=== PATIENT | male | born 1935 | race Caucasian/White ===

== ENCOUNTER 2019-04-19 13:42 | Inpatient (IN) | payer MEDICARE, OTHER ==
[2019-04-19] MEDS ORDERED: Piperacillin/Tazobactam 4.5 GM VIAL ONE (15:08)
[2019-04-19 15:10] LABS: Hemoglobin 9.7 g/dL (14.0-18.0); Mean Corpuscular HGB CONC 33.5 g/dL (32.0-36.0); Mean Corpuscular Hemoglobin 27.8 pg (27.0-31.0); Mean Platelet Volume 8.6 fL (7.4-10.4); Platelet Count 128 thou/uL (130-400); Red Blood Cell (RBC) Count 3.48 mill/uL (4.70-6.10)
[2019-04-19 15:26] LABS: Anisocytosis SLIGHT = 6-15 cells (100X) (0-5/hpf); Band 1 % (5-11); Lymphocytes 23 % (21-51); MDiff Complete? YES; Monocytes 10 % (0-10); Neutrophil 64 % (42-75); Platelet Morphology Comment Appears Decreased; Polychromasia SLIGHT = 2-3 cells (100X) (0-2/hpf); Reactive Lymphocytes 1 % (0-10)
[2019-04-19 15:31] LABS: ALT (SGPT) 13 U/L (8-55); AST (SGOT) 24 U/L (5-34); Albumin 3.4 g/dL (3.4-4.8); Alkaline Phosphatase 113 U/L (40-150); Anion Gap 14 mmol/L (10-20); BUN (Urea Nitrogen) 30 mg/dL (8.4-25.7); Bilirubin, Total 1.8 mg/dL (0.2-1.2); Calc. Creatinine Clearance 0 mL/min (70-130); Calcium 9.6 mg/dL (7.8-10.44); Carbon Dioxide 24 mmol/L (23-31); Chloride 103 mmol/L (98-107); Estimated GFR-MDRD 42; Globulin 4.9 g/dL (2.4-3.5); Glucose 150 mg/dL (83-110); Potassium 4.5 mmol/L (3.5-5.1); Protein, Total 8.3 g/dL (5.8-8.1); Sodium 136 mmol/L (136-145)
[2019-04-19] MEDS ORDERED: Clindamycin/D5W 600 mg/50 ml Premix Bag ONE (15:54)
[2019-04-19] MEDS ORDERED: Bisacodyl 10 MG SUPP PR PRN (19:07)
[2019-04-19] MEDS ORDERED: Guaifenesin DM 100-10/5 ML UDCUP PO PRN (19:07)
[2019-04-19] MEDS ORDERED: Vancomycin HCl 1 GM in Premix Bag 1 BAG IVPB SCH ×2 (19:15→21:45)
--- NOTE | 2019-04-19 20:07 | HP ---
REASON FOR ADMISSION: suspected Sepsis, bilateral leg chronic nonhealing ulcers with suspected infection, bilateral decubitus ulcers of buttocks. HISTORY OF PRESENTING ILLNESS: The patient has chronic leg ulcers from 2016. He was recently hospitalized at [facility] from 04/03/2019 for a total of 6 days. He was given antibiotics for the infected ulcers in the legs. He had [facility] with wound care arranged and was asked to follow up with his physician. From last one week, the patient's both lower extremities have become more swollen and the ulcers are weeping. It has become smelly as well per . Finally, the spoke to [facility] health nurse and drove her to the emergency room here. He in fact completed his antibiotics, which was given at [facility] yesterday. He does not recall the name of the antibiotic. He also has significant history of having had a big skin cancer removed from the scalp on the of last month. He had stitches placed for it and this was removed two weeks back. He has been wheelchair bound for last 1 year. He has decubitus ulcers over both buttocks, which have been present for a long time and have gradually become bigger and it is also draining more. PAST MEDICAL AND SURGICAL HISTORY: Chronic lower extremity ulcerations with likely stasis edema, bilateral decubitus ulcers in the buttocks due to poor functional status and the patient being wheelchair bound from last 1 year now, history of right hip replacement, small bowel obstruction with surgery done in August 2018 at [facility], cholecystectomy. No prior history of cardiac issues or heart failure to the patient or his 's knowledge. Cataract surgery. He apparently had repair of incarcerated ventral hernia on November 11, 2018. CKD stage 3, gout, hearing loss, depression. CURRENT MEDICATIONS: None. The patient was on Lasix before his recent hospitalization on the at [place], but on discharge, he was advised not to take it. He takes multivitamin occasionally. He finished his antibiotics and probiotic which was given at [facility] yesterday. ALLERGIES: ALLERGIC TO CIPROFLOXACIN, AZTREONAM, BENADRYL AND ZOSYN. PERSONAL HISTORY: Does not abuse alcohol or drugs. The patient quit smoking about 58 years ago. FAMILY HISTORY: Mother at the age of 62 years. She has had stroke. Father at the age of 74 years in a prison and he does not know the cause. Brother of colon cancer at the age of 80. Has another brother who has stage IV colon cancer and is living. CODE STATUS: DNAR. I have discussed this with the patient at bedside and his power of managing attorney and at bedside. REVIEW OF SYSTEMS: CONSTITUTIONAL: Negative for weight loss or gain, ability to conduct usual activities. SKIN: Negative for rash, itching. EYES: Negative for double vision, pain. ENT/MOUTH: Negative for nose bleeding, neck stiffness, pain, tenderness. CARDIOVASCULAR: Negative for palpitations, dyspnea on exertion, orthopnea. RESPIRATORY: Negative for shortness of breath, wheezing, cough, hemoptysis, fever or night sweats. GASTROINTESTINAL: Negative for poor appetite, abdominal pain, heartburn, nausea , vomiting, constipation, or diarrhea. GENITOURINARY: Negative for urgency, frequency, dysuria, nocturia. MUSCULOSKELETAL: Negative for pain, swelling. NEUROLOGIC/PSYCHIATRIC: Negative for anxiety, depression. ALLERGY/IMMUNOLOGIC: Negative for skin rash, bleeding tendency. PHYSICAL EXAMINATION: GENERAL: The patient is an 84-year-old male who is currently not in any acute distress. VITAL SIGNS: Blood pressure 154/58, pulse 110 per minute, respiratory rate 24 per minute, temperature 98 degrees Fahrenheit, and saturating 97% on room air. NECK: Supple. No elevated JVD. HEENT: Eyes; extraocular muscles intact. Pupils reacting to light. Oral cavity, mucous membranes are dry. No exudates or congestion. CARDIOVASCULAR: S1 and S2 heard. Regular rhythm. RESPIRATORY: Air entry 1+ bilateral. No rales or rhonchi. ABDOMEN: Soft. Bowel sounds heard. No tenderness, rigidity, or guarding. The patient still has ventral hernia which is easily reducible. EXTREMITIES: The patient has 2+ peripheral edema. Has chronic ulcerations on both leg area. Both are large size ulcers at least 6 x 10 cm on both legs. Has yellowish green material at the edges of the ulcer draining out. He has bilateral buttock ulcers on the medial side of both buttocks, even this is draining serosanguinous material. The right buttock ulcer is 5 x 6 cm and the left buttock ulcer is around 4 x 4 cm. Peripheral pulses in the lower extremities are barely palpable. No gangrene seen in the toes. Upper extremity peripheral pulses are 1+ bilateral. CENTRAL NERVOUS SYSTEM: No gross focal deficits noted. The patient moves all extremities. PSYCHIATRIC: No obvious hallucinations or delusions. LABORATORY DATA: White count of 7, H and H 10 and 29, platelet count is 128, MCV is 83 with 64% neutrophils. BUN 30, creatinine 1.58, serum bicarb 24, serum glucose 150, lactic acid 2.9, total bilirubin 1.8. AST, ALT, and alkaline phosphatase within normal limits. BNP 374. Albumin is 3.4. CLINICAL IMPRESSION AND PLAN: The patient will be admitted to medical floor for multiple ulcers including 2 decubitus ulcers on medial buttocks on both sides. He has very poor functional status and is essentially wheelchair bound for last 1 year now. He has had recent hospitalization as well for the ulcers. We will place him on vancomycin and meropenem. We will obtain deep wound cultures if possible. Echo with 2D Doppler for LV function. We will also place him on Lasix 40 mg IV q.12 hourly and we will hold this if his systolic blood pressure dropped to less than 100. He wants to be do not attempt to resuscitate. We will consult Dr. Gomez , who is semiconductor wafer inspector tomorrow. I will keep him n.p.o. after midnight for possible debridement. Wound Care consultation will be requested as well. I will order a CT of both legs to rule out osteomyelitis since the ulcerations in the legs have been there for quite some time now almost 2016. Job ID: [id number] [facility]
[2019-04-19 21:22] VITALS: BMI 25.2
[2019-04-19] MEDS ORDERED: Famotidine 20 MG TAB PO SCH (21:30)
[2019-04-19] MEDS: Meropenem 500 MG in Sodium Chloride 0.9% 100 ML IVPB SCH (22:56)
[2019-04-19] MEDS: Senokot S 8.6-50 MG TAB PO SCH (23:06)
--- NOTE | 2019-04-19 23:12 | CT ---
EXAM: CT pelvis without contrast HISTORY: Bilateral lower extremity pain after recent fall. History of chronic lower extremity ulcer. Evaluate for osteomyelitis. COMPARISON: None TECHNIQUE: Multiple contiguous axial images were obtained and a CT of the pelvis without contrast. Sa gittal and coronal reformats were performed. FINDINGS: The patient has a right hip prosthesis which produces streak artifact limiting this exam. S evere degenerative changes and osseous destruction are seen in the left proximal femur with severe left hip degenerative change. No pelvic fractures are seen. No fracture of either proximal femur is s een. Scattered diverticula are seen in the colon. Vascular calcifications are seen. The other visualized i ntrapelvic structures are unremarkable. Diffuse soft tissue anasarca is seen. No focal fluid collection is seen in the soft tissues surrounding the pelvis. IMPRESSION: Severe destructive changes in the left hip. This may be sequelae from prior septic arthri tis. Chronic osteomyelitis could also produce these findings.
--- NOTE | 2019-04-19 23:19 | CT ---
EXAM: CT right lower extremity without contrast HISTORY: Bilateral lower extremity pain. History of chronic lower extremity ulcer COMPARISON: None TECHNIQUE: Multiple contiguous axial images were obtained and a CT of the right lower without contras t. Sagittal and coronal reformats were performed. FINDINGS: No fractures are seen. The patient has a right hip prosthesis. Moderate degenerative keys ges are seen in the right knee. Osteopenia is seen distal to the ankle. No obvious osseous erosions are identified in the right lower extremity. Vascular calcifications are seen. Diffuse soft tissue swelling is seen. No focal fluid collection is identified. IMPRESSION: No obvious osseous erosions to suggest osteomyelitis. Evaluation is limited given the ost eopenia distally. An MRI would be a better examination for evaluation of osteomyelitis. The patient had an MRI in 2016.
--- NOTE | 2019-04-19 23:30 | CT ---
EXAM: CT left lower extremity without contrast HISTORY: Bilateral lower extremity pain. History of chronic lower extremity ulcer COMPARISON: None TECHNIQUE: Multiple contiguous axial images were obtained and a CT of the left lower without contrast . Sagittal and coronal reformats were performed. FINDINGS: No fractures are seen. Severe destructive changes and degenerative changes are seen in th e left hip. A moderate left hip effusion is seen. Moderate degenerative changes are seen in the right knee. Osteopenia is seen distal to the ankle. No obvious osseous erosions are identified in the right lower extremity. Vascular calcifications are seen. Diffuse soft tissue swelling is seen. No focal fluid collection is identified. IMPRESSION: 1. No obvious distal osseous erosions to suggest osteomyelitis. Evaluation is limited given the osteo penia distally. An MRI would be a better examination for evaluation of osteomyelitis. The patient had an MRI in 2016. 2. Severe destructive changes of the left hip may be secondary to sequelae from remote septic arthrit is. Chronic osteomyelitis could also produce these findings.
[2019-04-20] MEDS: Furosemide 40 MG/4 ML VIAL SLOW IVP SCH ×2 (05:17→13:48)
[2019-04-20] MEDS: Meropenem 500 MG in Sodium Chloride 0.9% 100 ML IVPB SCH ×3 (05:17→22:56)
[2019-04-20 08:19] LABS: Anion Gap 11 mmol/L (10-20); BUN (Urea Nitrogen) 25 mg/dL (8.4-25.7); Calc. Creatinine Clearance 48 mL/min (70-130); Calcium 8.3 mg/dL (7.8-10.44); Carbon Dioxide 26 mmol/L (23-31); Chloride 104 mmol/L (98-107); Estimated GFR-MDRD 44; Glucose 89 mg/dL (83-110); Sodium 137 mmol/L (136-145)
[2019-04-20 09:22] LABS: Band 7 % (5-11); Hemoglobin 8.4 g/dL (14.0-18.0); Lymphocytes 21 % (21-51); MDiff Complete? YES; Mean Corpuscular HGB CONC 33.2 g/dL (32.0-36.0); Mean Corpuscular Hemoglobin 27.7 pg (27.0-31.0); Mean Corpuscular Volume 83.4 fL (78.0-98.0); Mean Platelet Volume 7.8 fL (7.4-10.4); Monocytes 4 % (0-10); Neutrophil 68 % (42-75); Platelet Count 94 thou/uL (130-400); Platelet Morphology Comment Appears Decreased; RBC Distribution Width 15.8 % (11.5-14.5); Red Blood Cell (RBC) Count 3.02 mill/uL (4.70-6.10); White Blood Cell (WBC) Count 5.5 thou/uL (4.8-10.8)
[2019-04-20] MEDS: Potassium Chloride 20 MEQ TAB PO SCH ×2 (09:39→17:14)
[2019-04-20] MEDS: Senokot S 8.6-50 MG TAB PO SCH ×2 (09:41→20:22)
[2019-04-20] MEDS: Enoxaparin Sodium 40 MG/0.4 ML SYRINGE SC SCH (09:41)
[2019-04-20] MEDS: Acetaminophen 325 MG TAB PO PRN ×2 (09:46→13:59)
--- NOTE | 2019-04-20 13:26 | CON ---
DATE OF CONSULTATION: 04/20/2019 CONSULTING PHYSICIAN: Elvis Lorenzo MD REASON FOR CONSULTATION: Multiple ulcers on buttocks and lower legs. HISTORY OF PRESENT ILLNESS: The patient is a chronically ill 84-year-old white male. He apparently has been nonambulatory for about a year. He has had some degree of surgery over the past year or two. He has no family members at bedside and it is difficult to obtain a time history. However, apparently he has developed some ulcers on his sacral area, bilateral ischial tuberosities, and bilateral lower extremity. I believe, he was brought into the hospital at this time for concern regarding these ulcers. He was hospitalized on the Hospitalist Service and placed on intravenous antibiotics and I am consulted in regard to possible debridement. Again, I am uncertain how long any of these ulcers have been present. PAST MEDICAL HISTORY: 1. Chronic lower extremity ulcerations and venous insufficiency. 2. Bilateral decubitus ulcers. 3. History of right hip replacement. 4. Surgery for bowel obstruction in August 2018. 5. History of an open cholecystectomy done through a large upper abdominal chevron incision. 6. Apparently, he had an incarcerated ventral hernia in October 2018, also treated I believe at [facility]. 7. History of cataract surgery. 8. Gout. CURRENT MEDICATIONS: Apparently takes no prescription medications at home. ALLERGIES: TO CIPRO, AZTREONAM, BENADRYL, AND ZOSYN. PERSONAL AND SOCIAL HISTORY: He is , but his is not present. He has 1 child. He lives in [place] currently. He does not smoke or drink alcohol. As mentioned, he is nonambulatory. REVIEW OF SYSTEMS: Otherwise unremarkable. FAMILY HISTORY: Noncontributory. PHYSICAL EXAMINATION: GENERAL: He is resting in bed currently. He is alert, oriented, and cooperative. He tends to ramble when he is talking and has to be refocused. HEAD, EYES, EARS, NOSE, AND THROAT: Unremarkable. NECK: Supple. LUNGS: Clear to auscultation. CARDIAC: Regular rate and rhythm. ABDOMEN: Soft, nontender, and nondistended. BACK: With him rolled over on his side, I was able to examine his sacrum and both of the ischial ulcers. The sacral area is an area of partial-thickness breakdown. There is an appropriate Mepilex dressing over this. There is also dressings over his bilateral ischial ulcers. These are both superficial lesions without evidence of necrosis or infection. There appears to be muscle tissue visible at both sites. Again, there is no undermining or depth to either ulcer. EXTREMITIES: He has Galdino wraps and some degree of compression on both lower extremities. He has ulcers. There are primary lateral ulcers on both legs. Although, there is some tenderness associated with this. There is certainly no evidence of infection, necrosis, or foul smell. There actually appears to perhaps be a little bit of hypergranulation tissue on the left. There are chronic changes of venous insufficiency bilaterally. LABORATORY DATA: His CBC shows a white blood cell count of 5.5 with an anemia with a hemoglobin of 8.4. His differential is normal as well. His platelet count is a little low at 94. Chemistry panel is unremarkable except for some baseline creatinine elevation of 1.5. ASSESSMENT AND PLAN: The patient with bilateral lower leg ulcers, bilateral ischial tuberosity ulcers, and a partial-thickness sacral ulcer. None of these require any debridement. Attempts at doing anything surgical will only make these worse. There is no infection or necrosis. Continue with pressure avoidance, compression for the lower extremity, antibiotics as felt to be appropriate. Job ID: [id number]
--- NOTE | 2019-04-20 16:14 | PDOC.PN ---
- Subjective Encounter Start Date: 04/20/19 Encounter Start Time: 13:30 Subjective: not in distress, feels better -: is more awake than yesterday - Objective Resuscitation Status - Order Detail: 04/19/19 18:59 Resuscitation Status Routine Resuscitation Status: DNAR: NO Resuscitation Discussed with: d/w patient and at bedside in ER #20 MAR Reviewed: Yes Vital Signs & Weight: Vital Signs (12 hours) Temp Pulse Resp BP Pulse Ox 04/20/19 12:00 98.2 F 68 18 115/56 L 100 04/20/19 09:49 100 04/20/19 07:33 98.2 F 93 17 124/50 L 100 04/20/19 05:11 98.2 F 96 20 124/54 L 97 Weight Weight 207 lb 14.334 oz I&O: 04/19/19 04/20/19 04/21/19 06:59 06:59 06:59 Intake Total 744 Output Total 100 200 Balance 644 -200 Result Diagrams: 04/20/19 07:44 04/20/19 07:44 Phys Exam - Physical Examination HEENT: PERRLA, moist MMs Neck: no JVD, supple Respiratory: no wheezing, no rales Cardiovascular: RRR, no significant murmur Gastrointestinal: soft, non-tender, positive bowel sounds Musculoskeletal: pulses present, edema present b/l leg ulcer, b/l ischial tuberosity area pressure ulcers Neurological: non-focal, moves all 4 limbs Dx/Plan (1) Ulcers of both lower extremities Code(s): L97.919 - NON-PRS CHRONIC ULC UNSP PRT OF R LOW LEG W UNSP SEVERITY; L97.929 - NON-PRS CHRONIC ULC UNSP PRT OF L LOW LEG W UNSP SEVERITY Status: Chronic (2) Pressure ulcer of ischium Code(s): L89.309 - PRESSURE ULCER OF UNSPECIFIED BUTTOCK, UNSPECIFIED STAGE Status: Chronic Qualifiers: Pressure injury stage: stage 3 Comment: b/l (3) Venous stasis of both lower extremities Code(s): I87.8 - OTHER SPECIFIED DISORDERS OF VEINS Status: Chronic (4) CKD (chronic kidney disease) stage 3, GFR 30-59 ml/min Code(s): N18.3 - CHRONIC KIDNEY DISEASE, STAGE 3 (MODERATE) Status: Chronic (5) Gout Code(s): M10.9 - GOUT, UNSPECIFIED Status: Chronic Qualifiers: Gout site: unspecified site Gout etiology: unspecified cause Chronicity: chronic Presence of tophus: without tophus Qualified Code(s): M1A.9XX0 - Chronic gout, unspecified, without tophus (tophi) - Plan continue lasix for LE edema, is slowly resolving -: d/w , no debridement needed, has chronic ulcers with poor healing -: will dc antibiotics in am, likely dc plan in am -: will need placement, has HH 3 x weekly, not enough to manage him, is wheel -: -chair bound. Wound care for all his wounds * . Review of Systems - Medications/Allergies Allergies/Adverse Reactions: Allergies Allergy/AdvReac Type Severity Reaction Status Date / Time ciprofloxacin [From Cipro] Allergy Severe Anaphylaxis Verified 04/19/19 21:30 diphenhydramine Allergy Intermediate Hives Verified 04/19/19 21:30 [From Benadryl] aztreonam Allergy Verified 04/19/19 22:09 piperacillin [From Zosyn] Allergy Verified 04/20/19 01:44 tazobactam [From Zosyn] Allergy Verified 04/20/19 01:44 Medications: Current Medications Acetaminophen (Tylenol) 650 mg PO Q4H PRN PRN Reason: Headache/Fever/Mild Pain (1-3) Last Admin: 04/20/19 13:59 Dose: 650 mg Bisacodyl (Dulcolax) 10 mg [place] DAILYPRN PRN PRN Reason: Constipation Enoxaparin Sodium (Lovenox) 40 mg SC 0900 [facility] Last Admin: 04/20/19 09:41 Dose: Not Given Famotidine (Pepcid) 20 mg PO HS [facility] Furosemide (Lasix) 40 mg SLOW IVP 0600,1400 [facility] Last Admin: 04/20/19 13:48 Dose: 40 mg Guaifenesin/Dextromethorphan (Robitussin Dm) 15 ml PO Q4H PRN PRN Reason: Cough Meropenem 500 mg/ Sodium (Chloride) 100 mls @ 200 mls/hr IVPB Q8HR [facility] Last Admin: 04/20/19 13:51 Dose: 100 mls Vancomycin HCl 1.5 gm/ Sodium (Chloride) 300 mls @ 200 mls/hr IVPB 2100 [facility] Miscellaneous Medication (Pharmacy To Dose) 1 each IVPB PRN PRN PRN Reason: [facility]SSI Potassium Chloride (K-Dur) 40 meq PO BID-[facility] Last Admin: 04/20/19 09:39 Dose: 40 meq Senna/Docusate Sodium (Senokot S) 2 tab PO BID [facility] Last Admin: 04/20/19 09:41 Dose: Not Given
[2019-04-20] MEDS: Famotidine 20 MG TAB PO SCH (20:22)
[2019-04-20] MEDS ORDERED: Vancomycin HCl 1.5 GM in Sodium Chloride 0.9% 250 ML 300 ML IVPB SCH (21:00)
[2019-04-21 06:19] LABS: Anion Gap 10 mmol/L (10-20); BUN (Urea Nitrogen) 21 mg/dL (8.4-25.7); Calc. Creatinine Clearance 56 mL/min (70-130); Calcium 8.8 mg/dL (7.8-10.44); Carbon Dioxide 28 mmol/L (23-31); Chloride 103 mmol/L (98-107); Estimated GFR-MDRD 52; Glucose 79 mg/dL (83-110); Potassium 4.2 mmol/L (3.5-5.1); Sodium 137 mmol/L (136-145)
[2019-04-21] MEDS: Furosemide 40 MG/4 ML VIAL SLOW IVP SCH ×2 (06:34→13:08)
[2019-04-21] MEDS: Meropenem 500 MG in Sodium Chloride 0.9% 100 ML IVPB SCH ×2 (06:34→13:13)
[2019-04-21] MEDS: Potassium Chloride 20 MEQ TAB PO SCH (08:13)
[2019-04-21] MEDS: Enoxaparin Sodium 40 MG/0.4 ML SYRINGE SC SCH (08:13)
[2019-04-21] MEDS: Senokot S 8.6-50 MG TAB PO SCH ×2 (08:13→20:32)
--- NOTE | 2019-04-21 13:14 | PDOC.PN ---
- Subjective Encounter Start Date: 04/21/19 Encounter Start Time: 12:00 Subjective: awake, no pain -: swelling in lower extremities is mostly gone -: no sob - Objective Resuscitation Status - Order Detail: 04/19/19 18:59 Resuscitation Status Routine Resuscitation Status: DNAR: NO Resuscitation Discussed with: d/w patient and at bedside in ER #20 MAR Reviewed: Yes Vital Signs & Weight: Vital Signs (12 hours) Temp Pulse Resp BP Pulse Ox 04/21/19 08:18 96 04/21/19 07:34 98.2 F 69 17 119/56 L 96 04/21/19 04:00 98.4 F 79 16 129/57 L 96 Weight Weight 207 lb 14.334 oz I&O: 04/20/19 04/21/19 04/22/19 06:59 06:59 06:59 Intake Total 744 1764 Output Total 100 1890 300 Balance 644 -126 -300 Result Diagrams: 04/20/19 07:44 04/21/19 05:13 Phys Exam - Physical Examination HEENT: PERRLA, sclera anicteric Neck: no JVD, supple Respiratory: no wheezing, no rales Cardiovascular: RRR, no significant murmur Gastrointestinal: soft, no distention, positive bowel sounds Musculoskeletal: no edema, pulses present Neurological: non-focal, moves all 4 limbs Dx/Plan (1) Ulcers of both lower extremities Code(s): L97.919 - NON-PRS CHRONIC ULC UNSP PRT OF R LOW LEG W UNSP SEVERITY; L97.929 - NON-PRS CHRONIC ULC UNSP PRT OF L LOW LEG W UNSP SEVERITY Status: Chronic (2) Pressure ulcer of ischium Code(s): L89.309 - PRESSURE ULCER OF UNSPECIFIED BUTTOCK, UNSPECIFIED STAGE Status: Chronic Qualifiers: Pressure injury stage: stage 3 Comment: b/l (3) Venous stasis of both lower extremities Code(s): I87.8 - OTHER SPECIFIED DISORDERS OF VEINS Status: Chronic (4) CKD (chronic kidney disease) stage 3, GFR 30-59 ml/min Code(s): N18.3 - CHRONIC KIDNEY DISEASE, STAGE 3 (MODERATE) Status: Chronic (5) Gout Code(s): M10.9 - GOUT, UNSPECIFIED Status: Chronic Qualifiers: Gout site: unspecified site Gout etiology: unspecified cause Chronicity: chronic Presence of tophus: without tophus Qualified Code(s): M1A.9XX0 - Chronic gout, unspecified, without tophus (tophi) - Plan hemostable -: awaiting placement to skilled unit -: dc antibiotics, wound care to continue -: decrease lasix to daily -: mobilize as tolerated * . Review of Systems - Medications/Allergies Allergies/Adverse Reactions: Allergies Allergy/AdvReac Type Severity Reaction Status Date / Time ciprofloxacin [From Cipro] Allergy Severe Anaphylaxis Verified 04/19/19 21:30 diphenhydramine Allergy Intermediate Hives Verified 04/19/19 21:30 [From Benadryl] aztreonam Allergy Verified 04/19/19 22:09 piperacillin [From Zosyn] Allergy Verified 04/20/19 01:44 tazobactam [From Zosyn] Allergy Verified 04/20/19 01:44 Medications: Current Medications Acetaminophen (Tylenol) 650 mg PO Q4H PRN PRN Reason: Headache/Fever/Mild Pain (1-3) Last Admin: 04/20/19 13:59 Dose: 650 mg Bisacodyl (Dulcolax) 10 mg [place] DAILYPRN PRN PRN Reason: Constipation Enoxaparin Sodium (Lovenox) 40 mg SC 0900 [facility] Last Admin: 04/21/19 08:13 Dose: 40 mg Famotidine (Pepcid) 20 mg PO HS [facility] Last Admin: 04/20/19 20:22 Dose: 20 mg Furosemide (Lasix) 40 mg SLOW IVP 0600,1400 [facility] Last Admin: 04/21/19 13:08 Dose: 40 mg Guaifenesin/Dextromethorphan (Robitussin Dm) 15 ml PO Q4H PRN PRN Reason: Cough Meropenem 500 mg/ Sodium (Chloride) 100 mls @ 200 mls/hr IVPB Q8HR [facility] Last Admin: 04/21/19 13:13 Dose: 100 mls Vancomycin HCl 1.5 gm/ Sodium (Chloride) 300 mls @ 200 mls/hr IVPB 2100 [facility] Last Admin: 04/20/19 20:21 Dose: 300 mls Miscellaneous Medication (Pharmacy To Dose) 1 each IVPB PRN PRN PRN Reason: SSSI Potassium Chloride (K-Dur) 40 meq PO BID-[facility] Last Admin: 04/21/19 08:13 Dose: 40 meq Senna/Docusate Sodium (Senokot S) 2 tab PO BID [facility] Last Admin: 04/21/19 08:13 Dose: 2 tab
[2019-04-21] MEDS: traMADol HCl 50 MG TAB PO PRN (13:51)
[2019-04-21] MEDS: Carvedilol 3.125 MG TAB PO SCH (17:49)
[2019-04-21] MEDS: Famotidine 20 MG TAB PO SCH (20:30)
[2019-04-22 05:42] LABS: Anion Gap 12 mmol/L (10-20); BUN (Urea Nitrogen) 27 mg/dL (8.4-25.7); Calc. Creatinine Clearance 52 mL/min (70-130); Calcium 8.6 mg/dL (7.8-10.44); Carbon Dioxide 28 mmol/L (23-31); Chloride 98 mmol/L (98-107); Estimated GFR-MDRD 48; Glucose 97 mg/dL (83-110); Potassium 4.3 mmol/L (3.5-5.1); Sodium 134 mmol/L (136-145)
[2019-04-22] MEDS: Potassium Chloride 20 MEQ TAB PO SCH (08:17)
[2019-04-22] MEDS: Senokot S 8.6-50 MG TAB PO SCH (08:17)
[2019-04-22] MEDS: Lisinopril 2.5 MG TAB PO SCH (08:17)
[2019-04-22] MEDS: Enoxaparin Sodium 40 MG/0.4 ML SYRINGE SC SCH (08:18)
[2019-04-22] MEDS: Carvedilol 3.125 MG TAB PO SCH ×2 (08:18→17:23)
[2019-04-22] MEDS: Furosemide 40 MG TAB PO SCH (08:18)
--- NOTE | 2019-04-22 11:39 | PDOC.PN ---
- Subjective Encounter Start Date: 04/22/19 Encounter Start Time: 11:25 Subjective: had diarrheal episodes from yesterday -: will dc senna, is off antibiotics -: tolerating oral diet, no nausea - Objective Resuscitation Status - Order Detail: 04/19/19 18:59 Resuscitation Status Routine Resuscitation Status: DNAR: NO Resuscitation Discussed with: d/w patient and at bedside in ER #20 MAR Reviewed: Yes Vital Signs & Weight: Vital Signs (12 hours) Temp Pulse Resp BP BP Pulse Ox 04/22/19 08:17 75 135/67 04/22/19 08:00 99 04/22/19 07:49 98.4 F 75 18 135/67 99 Weight Admit Weight 207 lb 14.334 oz Weight 207 lb 14.334 oz I&O: 04/21/19 04/22/19 04/23/19 06:59 06:59 06:59 Intake Total 1764 1500 Output Total 1890 1960 Balance -126 -460 Result Diagrams: 04/20/19 07:44 04/22/19 05:06 Phys Exam - Physical Examination HEENT: PERRLA, moist MMs Neck: no JVD, supple Respiratory: no wheezing, no rales Cardiovascular: RRR, no significant murmur Gastrointestinal: soft, non-tender, no distention, positive bowel sounds Musculoskeletal: no edema, pulses present leg ulcers b/l, b/l ischial ulcers Neurological: non-focal, moves all 4 limbs Psychiatric: A&O x 3 Dx/Plan (1) Ulcers of both lower extremities Code(s): L97.919 - NON-PRS CHRONIC ULC UNSP PRT OF R LOW LEG W UNSP SEVERITY; L97.929 - NON-PRS CHRONIC ULC UNSP PRT OF L LOW LEG W UNSP SEVERITY Status: Chronic (2) Pressure ulcer of ischium Code(s): L89.309 - PRESSURE ULCER OF UNSPECIFIED BUTTOCK, UNSPECIFIED STAGE Status: Chronic Qualifiers: Pressure injury stage: stage 3 Comment: b/l (3) Venous stasis of both lower extremities Code(s): I87.8 - OTHER SPECIFIED DISORDERS OF VEINS Status: Chronic (4) CKD (chronic kidney disease) stage 3, GFR 30-59 ml/min Code(s): N18.3 - CHRONIC KIDNEY DISEASE, STAGE 3 (MODERATE) Status: Chronic (5) Gout Code(s): M10.9 - GOUT, UNSPECIFIED Status: Chronic Qualifiers: Gout site: unspecified site Gout etiology: unspecified cause Chronicity: chronic Presence of tophus: without tophus Qualified Code(s): [id number].[id number] - Chronic gout, unspecified, without tophus (tophi) - Plan ulcers are not infected and there is no need for debridement per surg -: is off antibiotics, will dc senna -: continue small dose of coreg and lisinopril for ef of 45% -: oral lasix, hemostable -: dc plan is to snf if he has enough days left or home with prior HH * . Review of Systems - Medications/Allergies Allergies/Adverse Reactions: Allergies Allergy/AdvReac Type Severity Reaction Status Date / Time ciprofloxacin [From Cipro] Allergy Severe Anaphylaxis Verified 04/19/19 21:30 diphenhydramine Allergy Intermediate Hives Verified 04/19/19 21:30 [From Benadryl] aztreonam Allergy Verified 04/19/19 22:09 piperacillin [From Zosyn] Allergy Verified 04/20/19 01:44 tazobactam [From Zosyn] Allergy Verified 04/20/19 01:44 Medications: Current Medications Acetaminophen (Tylenol) 650 mg PO Q4H PRN PRN Reason: Headache/Fever/Mild Pain (1-3) Last Admin: 04/20/19 13:59 Dose: 650 mg Bisacodyl (Dulcolax) 10 mg DC DAILYPRN PRN PRN Reason: Constipation Carvedilol (Coreg) 3.125 mg PO BID-[facility] Last Admin: 04/22/19 08:18 Dose: 3.125 mg Enoxaparin Sodium (Lovenox) 40 mg SC 0900 [facility] Last Admin: 04/22/19 08:18 Dose: 40 mg Famotidine (Pepcid) 20 mg PO HS [facility] Last Admin: 04/21/19 20:30 Dose: 20 mg Furosemide (Lasix) 40 mg PO DAILY [facility] Last Admin: 04/22/19 08:18 Dose: 40 mg Guaifenesin/Dextromethorphan (Robitussin Dm) 15 ml PO Q4H PRN PRN Reason: Cough Lisinopril (Zestril) 2.5 mg PO DAILY [facility] Last Admin: 04/22/19 08:17 Dose: 2.5 mg Potassium Chloride (K-Dur) 20 meq PO QAM-WM [facility] Last Admin: 04/22/19 08:17 Dose: 20 meq Tramadol HCl (Ultram) 50 mg PO Q6H PRN PRN Reason: Moderate to Severe Pain (6-10) Last Admin: 04/21/19 13:51 Dose: 50 mg
[2019-04-22] MEDS: Famotidine 20 MG TAB PO SCH (20:16)
[2019-04-23 05:31] LABS: Anion Gap 13 mmol/L (10-20); BUN (Urea Nitrogen) 32 mg/dL (8.4-25.7); Calc. Creatinine Clearance 52 mL/min (70-130); Calcium 8.7 mg/dL (7.8-10.44); Carbon Dioxide 27 mmol/L (23-31); Chloride 98 mmol/L (98-107); Estimated GFR-MDRD 48; Glucose 95 mg/dL (83-110); Potassium 4.5 mmol/L (3.5-5.1); Sodium 133 mmol/L (136-145)
[2019-04-23] MEDS: Furosemide 40 MG TAB PO SCH (11:11)
[2019-04-23] MEDS: Potassium Chloride 20 MEQ TAB PO SCH (11:11)
[2019-04-23] MEDS: Enoxaparin Sodium 40 MG/0.4 ML SYRINGE SC SCH (11:11)
[2019-04-23] MEDS: traMADol HCl 50 MG TAB PO PRN ×2 (12:35→20:20)
[2019-04-23] MEDS: Carvedilol 3.125 MG TAB PO SCH ×2 (12:40→18:28)
[2019-04-23] MEDS: Lisinopril 2.5 MG TAB PO SCH (12:43)
--- NOTE | 2019-04-23 15:31 | PDOC.PN ---
- Subjective Encounter Start Date: 04/23/19 Encounter Start Time: 15:29 Mr. Osborne was seen today in follow-up of multiple venous stasis ulcers. He does not have ny new complaints. - Objective Resuscitation Status - Order Detail: 04/19/19 18:59 Resuscitation Status Routine Resuscitation Status: DNAR: NO Resuscitation Discussed with: d/w patient and at bedside in ER #20 MAR Reviewed: Yes Vital Signs & Weight: Vital Signs (12 hours) Temp Pulse Resp BP BP Pulse Ox 04/23/19 12:43 61 111/52 L 04/23/19 08:00 98.3 F 70 20 119/52 L 97 Weight Admit Weight 207 lb 14.334 oz Weight 207 lb 14.334 oz I&O: 04/22/19 04/23/19 04/24/19 06:59 06:59 06:59 Intake Total 1500 650 Output Total 1960 700 Balance -460 -50 Result Diagrams: 04/20/19 07:44 04/23/19 04:54 Additional Labs: Accuchecks 04/23/19 05:31 POC Glucose 96 Phys Exam - Physical Examination HEENT: PERRLA Respiratory: no wheezing, no rales, no rhonchi, clear to auscultation bilateral Cardiovascular: RRR, no significant murmur, no rub Gastrointestinal: soft, non-tender, no distention, positive bowel sounds Musculoskeletal: no edema, pulses present Dx/Plan (1) CKD (chronic kidney disease) stage 3, GFR 30-59 ml/min Code(s): N18.3 - CHRONIC KIDNEY DISEASE, STAGE 3 (MODERATE) Status: Chronic (2) Ulcers of both lower extremities Code(s): L97.919 - NON-PRS CHRONIC ULC UNSP PRT OF R LOW LEG W UNSP SEVERITY; L97.929 - NON-PRS CHRONIC ULC UNSP PRT OF L LOW LEG W UNSP SEVERITY Status: Chronic (3) Venous stasis of both lower extremities Code(s): I87.8 - OTHER SPECIFIED DISORDERS OF VEINS Status: Chronic (4) Hypertension Code(s): I10 - ESSENTIAL (PRIMARY) HYPERTENSION Status: Chronic - Plan * Chronic venous stasis ulcer- continue local wound care, and he will not need antibiotics * CKD- stable * HTN- blood pressure is controlled * Patient is awaiting either USP or Home with Home health.
[2019-04-23] MEDS: Famotidine 20 MG TAB PO SCH (20:19)
[2019-04-24] MEDS: traMADol HCl 50 MG TAB PO PRN ×2 (05:56→21:22)
[2019-04-24 06:48] LABS: Anion Gap 8 mmol/L (10-20); BUN (Urea Nitrogen) 35 mg/dL (8.4-25.7); Calc. Creatinine Clearance 50 mL/min (70-130); Carbon Dioxide 30 mmol/L (23-31); Chloride 98 mmol/L (98-107); Estimated GFR-MDRD 46; Glucose 91 mg/dL (83-110); Potassium 4.1 mmol/L (3.5-5.1); Sodium 132 mmol/L (136-145)
[2019-04-24] MEDS: Potassium Chloride 20 MEQ TAB PO SCH (09:31)
[2019-04-24] MEDS: Furosemide 40 MG TAB PO SCH (09:31)
[2019-04-24] MEDS: Lisinopril 2.5 MG TAB PO SCH (09:31)
[2019-04-24] MEDS: Carvedilol 3.125 MG TAB PO SCH ×2 (09:31→17:36)
[2019-04-24] MEDS: Enoxaparin Sodium 40 MG/0.4 ML SYRINGE SC SCH (09:32)
--- NOTE | 2019-04-24 11:47 | PQF ---
FREDY WOOD JR., TONI MD [id number] CLINICAL DOCUMENTATION IMPROVEMENT CLARIFICATION FORM: ICD-10 Updated PLEASE DO AN ADDENDUM TO THE PROGRESS NOTE WITH ANY DOCUMENTATION UPDATES OR ADDITIONS AND CARRY THROUGH TO DC SUMMARY. THANK YOU. DATE: 04/24/2019 ATTN:DR. Job WEBBER Please exercise your independent, professional judgment in responding to the clarification form. Clinical indicators are provided on the bottom of this form for your review. Please check appropriate box(s): HEART FAILURE: A. TYPE: [ ] Systolic / HFrEF [ ] Diastolic / HFpEF [ X ] Combined Systolic / Diastolic B. ACUITY [ ] Acute [X ] Acute on Chronic [ ] Chronic [ ] Other diagnosis [ ] Unable to determine In addition, please specify: Present on Admission (POA): [X ] Yes [ ] No [ ] Unable to determine For continuity of documentation, please document condition throughout progress notes and discharge summary. Thank You. CLINICAL INDICATORS - SIGNS / SYMPTOMS / LABS 04/19 BNP 374.9 04/19 H & P ([facility] ) FROM LAST ONE WEEK, THE PATIENT'S BOTH LOWER EXTREMITIES HAVE BECOME MORE SWOLLEN AND ULCERS ARE WEEPING. NO PRIOR HISTORY OF CARDIAC ISSUES OR HEART FAILURE TO THE PATIENT OR HIS 'S KNOWLEDGE. 04/20 PN ( [facility]) 4) CKD STAGE 3 04/20 ECHO: EF IS ESTIMATED AT 40-45%, E/A FLOW REVERSAL NOTED, SUGGESTIVE OF DIASTOLIC DYSFUNCTION. THE LEFT ATRIUM IS MODERATELY DILATED, NORMAL RIGHT ATRIUM SIZE, MILD MITRAL REGURGITATION IS PRESENT, MILD AORTIC REGURGITATION IS NOTED. AORTIC VALVE LEAFLETS ARE SOMEWHAT THICKENED. MILD TRICUSPID REGURGITATION 04/23 PN (AK[facility]) DX/PLAN : 4) HYPERTENSION RISK: ADVANCED AGE ( 84) HTN PN (AKBAR) CKD 3 H & P ([facility]ADEESH[facility]) TREATMENTS: ECHO 04/20 LASIX (04/22 - PRESENT) CARVEDILOL (04/21 - PRESENT) THANK YOU! MARCIANO (This form is maintained as a part of the permanent medical record) 2014 [email or web address]. All Rights Reserved [email or web address] [phone] MTDD
--- NOTE | 2019-04-24 15:57 | PDOC.PN ---
- Subjective Encounter Start Date: 04/24/19 Encounter Start Time: 15:56 Mr. Osborne was seen today in follow-up of venous stasis ulcers. He does not have any new complaints. - Objective Resuscitation Status - Order Detail: 04/19/19 18:59 Resuscitation Status Routine Resuscitation Status: DNAR: NO Resuscitation Discussed with: d/w patient and at bedside in ER #20 MAR Reviewed: Yes Vital Signs & Weight: Vital Signs (12 hours) Temp Pulse Resp BP BP Pulse Ox 04/24/19 09:31 58 L 131/53 L 04/24/19 08:26 97.7 F 58 L 18 131/53 L 99 04/24/19 08:00 99 Weight Admit Weight 207 lb 14.334 oz Weight 207 lb 14.334 oz I&O: 04/23/19 04/24/19 04/25/19 06:59 06:59 06:59 Intake Total 650 1210 360 Output Total 700 500 275 Balance -50 710 85 Result Diagrams: 04/20/19 07:44 04/24/19 06:04 Additional Labs: Accuchecks 04/24/19 11:00 POC Glucose 111 H Phys Exam - Physical Examination HEENT: PERRLA Respiratory: no wheezing, no rales, no rhonchi, clear to auscultation bilateral Cardiovascular: RRR, no significant murmur, no rub Gastrointestinal: soft, non-tender, no distention, positive bowel sounds Musculoskeletal: pulses present + wound photo's noted Dx/Plan (1) Ulcers of both lower extremities Code(s): L97.919 - NON-PRS CHRONIC ULC UNSP PRT OF R LOW LEG W UNSP SEVERITY; L97.929 - NON-PRS CHRONIC ULC UNSP PRT OF L LOW LEG W UNSP SEVERITY Status: Chronic (2) CKD (chronic kidney disease) stage 3, GFR 30-59 ml/min Code(s): N18.3 - CHRONIC KIDNEY DISEASE, STAGE 3 (MODERATE) Status: Chronic (3) Venous stasis of both lower extremities Code(s): I87.8 - OTHER SPECIFIED DISORDERS OF VEINS Status: Chronic (4) Hypertension Code(s): I10 - ESSENTIAL (PRIMARY) HYPERTENSION Status: Chronic - Plan * Chronic venous stasis ulcers- continue Local wound care * HTN- blood pressure is stable * CKD- stable * Awaiting placement in either halfway or home with Home health- He may benefit from a lift chair/recliner if he goes home.
[2019-04-24] MEDS: Famotidine 20 MG TAB PO SCH (21:22)
[2019-04-25] MEDS: traMADol HCl 50 MG TAB PO PRN (06:11)
[2019-04-25 07:12] LABS: Anion Gap 10 mmol/L (10-20); BUN (Urea Nitrogen) 36 mg/dL (8.4-25.7); Calc. Creatinine Clearance 57 mL/min (70-130); Carbon Dioxide 29 mmol/L (23-31); Chloride 98 mmol/L (98-107); Estimated GFR-MDRD 54; Glucose 80 mg/dL (83-110); Potassium 4.3 mmol/L (3.5-5.1); Sodium 133 mmol/L (136-145)
[2019-04-25] MEDS: Lisinopril 2.5 MG TAB PO SCH (08:50)
[2019-04-25] MEDS: Furosemide 40 MG TAB PO SCH (08:50)
[2019-04-25] MEDS: Carvedilol 3.125 MG TAB PO SCH ×2 (08:50→15:53)
--- NOTE | 2019-04-25 14:29 | PDOC.PN ---
- Subjective Encounter Start Date: 04/25/19 Encounter Start Time: 14:28 Subjective: Admitted with worsening biklateral lower extremity wounds -: Feeling better. - Objective Resuscitation Status - Order Detail: 04/19/19 18:59 Resuscitation Status Routine Resuscitation Status: DNAR: NO Resuscitation Discussed with: d/w patient and at bedside in ER #20 Vital Signs & Weight: Vital Signs (12 hours) Temp Pulse Resp BP Pulse Ox 04/25/19 08:54 97.8 F 56 L 18 114/58 L 99 04/25/19 08:50 65 04/25/19 08:00 96 Weight Admit Weight 207 lb 14.334 oz Weight 207 lb 14.334 oz I&O: 04/24/19 04/25/19 04/26/19 06:59 06:59 06:59 Intake Total 1210 1290 Output Total 500 675 Balance 710 615 Result Diagrams: 04/20/19 07:44 04/25/19 06:32 Additional Labs: Accuchecks 04/24/19 17:04 POC Glucose 93 Phys Exam - Physical Examination Constitutional: NAD HEENT: moist MMs Neck: no JVD fair air entry bilaterally Cardiovascular: RRR soft systolic murmur noted Gastrointestinal: soft, non-tender, no distention Both legs and sacral area covered with dressing Neurological: moves all 4 limbs awake and conversational Dx/Plan (1) EVELINA (acute kidney injury) Code(s): N17.9 - ACUTE KIDNEY FAILURE, UNSPECIFIED Status: Acute (2) Decubitus ulcer Code(s): L89.90 - PRESSURE ULCER OF UNSPECIFIED SITE, UNSPECIFIED STAGE Status : Acute (3) CKD (chronic kidney disease) stage 3, GFR 30-59 ml/min Code(s): N18.3 - CHRONIC KIDNEY DISEASE, STAGE 3 (MODERATE) Status: Chronic (4) Hypertension Code(s): I10 - ESSENTIAL (PRIMARY) HYPERTENSION Status: Chronic (5) Pressure ulcer of ischium Code(s): L89.309 - PRESSURE ULCER OF UNSPECIFIED BUTTOCK, UNSPECIFIED STAGE Status: Chronic Qualifiers: Pressure injury stage: stage 3 Comment: bilateral (6) Ulcers of both lower extremities Code(s): L97.919 - NON-PRS CHRONIC ULC UNSP PRT OF R LOW LEG W UNSP SEVERITY; L97.929 - NON-PRS CHRONIC ULC UNSP PRT OF L LOW LEG W UNSP SEVERITY Status: Chronic (7) Venous stasis of both lower extremities Code(s): I87.8 - OTHER SPECIFIED DISORDERS OF VEINS Status: Chronic (8) Chronic combined systolic and diastolic congestive heart failure Code(s): I50.42 - CHRONIC COMBINED SYSTOLIC AND DIASTOLIC HRT FAIL Status: Acute - Plan Continue current treatments. -: Get repeat CBC and BMP. -: Awaiting placement -: Continue wound care * .
[2019-04-25] MEDS: Potassium Chloride 20 MEQ TAB PO SCH (15:53)
[2019-04-25] MEDS: Enoxaparin Sodium 40 MG/0.4 ML SYRINGE SC SCH (15:53)
[2019-04-25] MEDS: Famotidine 20 MG TAB PO SCH (20:26)
[2019-04-26 06:21] LABS: Anion Gap 10 mmol/L (10-20); BUN (Urea Nitrogen) 36 mg/dL (8.4-25.7); Calc. Creatinine Clearance 55 mL/min (70-130); Calcium 8.5 mg/dL (7.8-10.44); Carbon Dioxide 30 mmol/L (23-31); Chloride 97 mmol/L (98-107); Estimated GFR-MDRD 51; Glucose 79 mg/dL (83-110); Potassium 4.2 mmol/L (3.5-5.1); Sodium 133 mmol/L (136-145)
[2019-04-26 06:34] LABS: Band 1 % (5-11); Hemoglobin 8.8 g/dL (14.0-18.0); Lymphocytes 23 % (21-51); MDiff Complete? YES; Mean Corpuscular HGB CONC 32.4 g/dL (32.0-36.0); Mean Corpuscular Hemoglobin 27.1 pg (27.0-31.0); Mean Corpuscular Volume 83.7 fL (78.0-98.0); Mean Platelet Volume 8.4 fL (7.4-10.4); Monocytes 13 % (0-10); Neutrophil 63 % (42-75); Platelet Count 93 thou/uL (130-400); Platelet Morphology Comment Appears Decreased; RBC Distribution Width 15.6 % (11.5-14.5); Red Blood Cell (RBC) Count 3.26 mill/uL (4.70-6.10); White Blood Cell (WBC) Count 4.8 thou/uL (4.8-10.8)
[2019-04-26] MEDS: Furosemide 40 MG TAB PO SCH (08:46)
[2019-04-26] MEDS: traMADol HCl 50 MG TAB PO PRN ×2 (08:47→22:08)
[2019-04-26] MEDS: Carvedilol 3.125 MG TAB PO SCH ×2 (08:48→17:34)
[2019-04-26] MEDS: Lisinopril 2.5 MG TAB PO SCH (08:48)
[2019-04-26] MEDS: Enoxaparin Sodium 40 MG/0.4 ML SYRINGE SC SCH (08:49)
[2019-04-26] MEDS: Acetaminophen 325 MG TAB PO PRN (10:18)
[2019-04-26] MEDS ORDERED: Nystatin Powder 15 GM BOT TOP PRN (10:38)
[2019-04-26] MEDS: Potassium Chloride 20 MEQ TAB PO SCH (12:00)
--- NOTE | 2019-04-26 13:26 | PDOC.PN ---
- Subjective Encounter Start Date: 04/26/19 Encounter Start Time: 13:24 Subjective: having loose stools associated with incontinence. -: haD prior history of C dif and had recieved antibiotics earlier. - Objective Resuscitation Status - Order Detail: 04/19/19 18:59 Resuscitation Status Routine Resuscitation Status: DNAR: NO Resuscitation Discussed with: d/w patient and at bedside in ER #20 Vital Signs & Weight: Vital Signs (12 hours) Temp Pulse Resp BP Pulse Ox 04/26/19 08:48 58 L 04/26/19 08:22 98.2 F 58 L 20 121/60 99 Weight Admit Weight 207 lb 14.334 oz Weight 207 lb 14.334 oz I&O: 04/25/19 04/26/19 04/27/19 06:59 06:59 06:59 Intake Total 1290 1300 Output Total 675 550 Balance 615 750 Result Diagrams: 04/26/19 05:39 04/26/19 05:39 Phys Exam - Physical Examination Constitutional: NAD No distress HEENT: moist MMs Neck: no JVD, supple Respiratory: no wheezing, no rales, no rhonchi, clear to auscultation bilateral Cardiovascular: RRR Gastrointestinal: soft, non-tender, no distention Both legs covered with dressings. Awake and conversational. Moving all limbs but lower limb power is reduced Hard of hearing Psychiatric: A&O x 3 Dx/Plan (1) Acute on chronic combined systolic (congestive) and diastolic (congestive) heart failure Code(s): I50.43 - ACUTE ON CHRONIC COMBINED SYSTOLIC AND DIASTOLIC HRT FAIL Status: Acute (2) EVELINA (acute kidney injury) Code(s): N17.9 - ACUTE KIDNEY FAILURE, UNSPECIFIED Status: Acute (3) Decubitus ulcer Code(s): L89.90 - PRESSURE ULCER OF UNSPECIFIED SITE, UNSPECIFIED STAGE Status : Acute (4) CKD (chronic kidney disease) stage 3, GFR 30-59 ml/min Code(s): N18.3 - CHRONIC KIDNEY DISEASE, STAGE 3 (MODERATE) Status: Chronic (5) Hypertension Code(s): I10 - ESSENTIAL (PRIMARY) HYPERTENSION Status: Chronic (6) Pressure ulcer of ischium Code(s): L89.309 - PRESSURE ULCER OF UNSPECIFIED BUTTOCK, UNSPECIFIED STAGE Status: Chronic Qualifiers: Pressure injury stage: stage 3 Comment: bilateral (7) Ulcers of both lower extremities Code(s): L97.919 - NON-PRS CHRONIC ULC UNSP PRT OF R LOW LEG W UNSP SEVERITY; L97.929 - NON-PRS CHRONIC ULC UNSP PRT OF L LOW LEG W UNSP SEVERITY Status: Chronic (8) Venous stasis of both lower extremities Code(s): I87.8 - OTHER SPECIFIED DISORDERS OF VEINS Status: Chronic (9) Chronic combined systolic and diastolic congestive heart failure Code(s): I50.42 - CHRONIC COMBINED SYSTOLIC AND DIASTOLIC HRT FAIL Status: Acute (10) Frequent loose stools Code(s): R19.7 - DIARRHEA, UNSPECIFIED Status: Acute Comment: C dif is a concern - Plan Continue wound care and other supportive care. -: Get C dif toxin assay. * .
[2019-04-26] MEDS: Famotidine 20 MG TAB PO SCH (20:03)
[2019-04-27 06:24] LABS: Anion Gap 10 mmol/L (10-20); BUN (Urea Nitrogen) 38 mg/dL (8.4-25.7); BUN/Creatinine Ratio 23.75; Calc. Creatinine Clearance 46 mL/min (70-130); Calcium 9.1 mg/dL (7.8-10.44); Carbon Dioxide 31 mmol/L (23-31); Chloride 99 mmol/L (98-107); Estimated GFR-MDRD 41; Glucose 82 mg/dL (83-110); Phosphorus 4.5 mg/dL (2.3-4.7); Potassium 4.5 mmol/L (3.5-5.1); Sodium 135 mmol/L (136-145)
--- NOTE | 2019-04-27 07:57 | PDOC.PN ---
- Subjective Encounter Start Date: 04/27/19 Encounter Start Time: 07:55 Subjective: Seen and exdamined. Complaining of occasionaal twitching of left leg -: Loose stool has subsided. No fever or SOB. - Objective Resuscitation Status - Order Detail: 04/19/19 18:59 Resuscitation Status Routine Resuscitation Status: DNAR: NO Resuscitation Discussed with: d/w patient and at bedside in ER #20 Vital Signs & Weight: Vital Signs (12 hours) Temp Pulse Resp BP Pulse Ox 04/27/19 07:36 97.8 F 63 16 114/55 L 98 04/27/19 05:14 97.6 F 59 L 16 122/52 L 95 04/27/19 00:00 98.1 F 59 L 15 106/42 L 97 04/26/19 20:09 98 04/26/19 20:00 97.2 F L 61 15 113/49 L 98 Weight Admit Weight 207 lb 14.334 oz Weight 207 lb 14.334 oz I&O: 04/26/19 04/27/19 04/28/19 06:59 06:59 06:59 Intake Total 1300 1600 Output Total 550 Balance 750 1600 Result Diagrams: 04/26/19 05:39 04/27/19 05:51 Phys Exam - Physical Examination Constitutional: NAD HEENT: moist MMs Neck: no JVD, supple Respiratory: no wheezing, no rales, no rhonchi, clear to auscultation bilateral Cardiovascular: RRR Gastrointestinal: soft, non-tender, no distention, positive bowel sounds Muscle wasting of left thigh and bilateral leg dressings noted , hard of hearing. Psychiatric: A&O x 3 Dx/Plan (1) Acute on chronic combined systolic (congestive) and diastolic (congestive) heart failure Code(s): I50.43 - ACUTE ON CHRONIC COMBINED SYSTOLIC AND DIASTOLIC HRT FAIL Status: Acute (2) EVELINA (acute kidney injury) Code(s): N17.9 - ACUTE KIDNEY FAILURE, UNSPECIFIED Status: Acute (3) Decubitus ulcer Code(s): L89.90 - PRESSURE ULCER OF UNSPECIFIED SITE, UNSPECIFIED STAGE Status : Acute (4) CKD (chronic kidney disease) stage 3, GFR 30-59 ml/min Code(s): N18.3 - CHRONIC KIDNEY DISEASE, STAGE 3 (MODERATE) Status: Chronic (5) Hypertension Code(s): I10 - ESSENTIAL (PRIMARY) HYPERTENSION Status: Chronic (6) Pressure ulcer of ischium Code(s): L89.309 - PRESSURE ULCER OF UNSPECIFIED BUTTOCK, UNSPECIFIED STAGE Status: Chronic Qualifiers: Pressure injury stage: stage 3 Comment: bilateral (7) Ulcers of both lower extremities Code(s): L97.919 - NON-PRS CHRONIC ULC UNSP PRT OF R LOW LEG W UNSP SEVERITY; L97.929 - NON-PRS CHRONIC ULC UNSP PRT OF L LOW LEG W UNSP SEVERITY Status: Chronic (8) Venous stasis of both lower extremities Code(s): I87.8 - OTHER SPECIFIED DISORDERS OF VEINS Status: Chronic (9) Chronic combined systolic and diastolic congestive heart failure Code(s): I50.42 - CHRONIC COMBINED SYSTOLIC AND DIASTOLIC HRT FAIL Status: Acute (10) Frequent loose stools Code(s): R19.7 - DIARRHEA, UNSPECIFIED Status: Acute Comment: C dif is a concern - Plan DC potassium supplementation and decrease lasix due to increasing creat. -: Harper oral intake advised. Continue dietary supplementa. -: Wound care to continue. Get c dif toxin if loose stool recurrs -: Case mgt still working on safe disposition. -: Repeat BMP in the am. Start flexeril prn for muscle twictching. * .
[2019-04-27] MEDS: Carvedilol 3.125 MG TAB PO SCH ×2 (08:47→17:48)
[2019-04-27] MEDS: Furosemide 20 MG TAB PO SCH (08:47)
[2019-04-27] MEDS: Lisinopril 2.5 MG TAB PO SCH (08:48)
[2019-04-27] MEDS: Enoxaparin Sodium 40 MG/0.4 ML SYRINGE SC SCH (08:50)
[2019-04-27] MEDS: Famotidine 20 MG TAB PO SCH (20:34)
[2019-04-27] MEDS: traMADol HCl 50 MG TAB PO PRN (20:34)
[2019-04-28 06:01] LABS: Anion Gap 11 mmol/L (10-20); BUN (Urea Nitrogen) 38 mg/dL (8.4-25.7); Calc. Creatinine Clearance 51 mL/min (70-130); Calcium 8.8 mg/dL (7.8-10.44); Carbon Dioxide 27 mmol/L (23-31); Chloride 99 mmol/L (98-107); Estimated GFR-MDRD 47; Glucose 79 mg/dL (83-110); Potassium 4.5 mmol/L (3.5-5.1); Sodium 132 mmol/L (136-145)
[2019-04-28] MEDS: Lisinopril 2.5 MG TAB PO SCH (10:17)
[2019-04-28] MEDS: Carvedilol 3.125 MG TAB PO SCH ×2 (10:18→17:20)
[2019-04-28] MEDS: Furosemide 20 MG TAB PO SCH (10:18)
[2019-04-28] MEDS: Enoxaparin Sodium 40 MG/0.4 ML SYRINGE SC SCH (10:21)
--- NOTE | 2019-04-28 11:44 | PDOC.PN ---
- Subjective Encounter Start Date: 04/28/19 Encounter Start Time: 11:40 Subjective: f/u for chronic LE venous stasis with ulceration and chronic -: deconditioning awaiting SNF options. c/o LE pain intermittently -: and loose stool. - Objective Resuscitation Status - Order Detail: 04/19/19 18:59 Resuscitation Status Routine Resuscitation Status: DNAR: NO Resuscitation Discussed with: d/w patient and at bedside in ER #20 MAR Reviewed: Yes Vital Signs & Weight: Vital Signs (12 hours) Temp Pulse Resp BP BP Pulse Ox 04/28/19 10:17 60 120/45 L 04/28/19 07:50 97.7 F 64 18 130/59 L 97 Weight Admit Weight 207 lb 14.334 oz Weight 207 lb 14.334 oz I&O: 04/27/19 04/28/19 04/29/19 06:59 06:59 06:59 Intake Total 1600 760 Output Total 400 Balance 1600 360 Result Diagrams: 04/26/19 05:39 04/28/19 05:21 Additional Labs: Microbiology 04/27/19 10:43 Stool C. difficile GDH Antigen & Toxins - Final 04/20/19 09:25 Leg - Swab Bacterial Culture - Final Proteus mirabilis Pseudomonas aeruginosa 04/19/19 14:48 Venous blood - Right Arm Blood Culture - Final NO GROWTH IN 5 DAYS 04/19/19 14:48 Venous blood - Left Arm Blood Culture - Final NO GROWTH IN 5 DAYS Laboratory Tests 04/19/19 04/20/19 04/25/19 14:48 07:44 06:32 Hgb 9.7 L 8.4 L Creatinine 1.28 04/26/19 04/27/19 05:39 05:51 Hgb Creatinine 1.34 H 1.60 H Phys Exam - Physical Examination Constitutional: NAD HEENT: PERRLA, sclera anicteric, oral pharynx no lesions Neck: no nodes, no JVD, supple, full ROM Respiratory: no wheezing, no rales, no rhonchi, clear to auscultation bilateral S1, S2 Cardiovascular: RRR, no significant murmur, no rub, gallop Gastrointestinal: soft, non-tender, no distention, positive bowel sounds Bilat LE wound dressings in place Musculoskeletal: pulses present Neurological: moves all 4 limbs Psychiatric: A&O x 3 Skin: normal turgor, cap refill <2 seconds Dx/Plan (1) Ulcers of both lower extremities Code(s): L97.919 - NON-PRS CHRONIC ULC UNSP PRT OF R LOW LEG W UNSP SEVERITY; L97.929 - NON-PRS CHRONIC ULC UNSP PRT OF L LOW LEG W UNSP SEVERITY Status: Chronic Comment: WCT with local care, dressings in place, elevate LE's while in bed (2) Venous stasis of both lower extremities Code(s): I87.8 - OTHER SPECIFIED DISORDERS OF VEINS Status: Chronic Comment : See above (3) Pressure ulcer of ischium Code(s): L89.309 - PRESSURE ULCER OF UNSPECIFIED BUTTOCK, UNSPECIFIED STAGE Status: Chronic Qualifiers: Pressure injury stage: stage 3 Comment: bilateral, turning protocol, local wound care (4) CKD (chronic kidney disease) stage 3, GFR 30-59 ml/min Code(s): N18.3 - CHRONIC KIDNEY DISEASE, STAGE 3 (MODERATE) Status: Chronic Comment: Stable, avoid nephrotoxic meds and limit contrast exposure (5) Chronic combined systolic and diastolic congestive heart failure Code(s): I50.42 - CHRONIC COMBINED SYSTOLIC AND DIASTOLIC HRT FAIL Status: Chronic Comment: Lasix 20mg po daily - Plan plan discussed w/ family, PT/OT, social work job titles Continue local wound care with WCT -: Swing bed options pending per CM -: Continue nutritional supplementation with Ensure TID -: Code status: DNAR -: Loparamide 2mg po daily prn diarrhea * Likely d/c in 24-48h
[2019-04-28] MEDS ORDERED: Loperamide HCl 2 MG CAP PO PRN (12:00)
[2019-04-28] MEDS: Famotidine 20 MG TAB PO SCH (20:53)
[2019-04-28] MEDS: traMADol HCl 50 MG TAB PO PRN (20:54)
[2019-04-29] MEDS: Enoxaparin Sodium 40 MG/0.4 ML SYRINGE SC SCH (07:45)
[2019-04-29] MEDS: Carvedilol 3.125 MG TAB PO SCH (07:45)
[2019-04-29] MEDS: Lisinopril 2.5 MG TAB PO SCH (07:46)
[2019-04-29] MEDS: Furosemide 20 MG TAB PO SCH (07:46)
[2019-04-29 13:58] VITALS: BP 121/54; TEMP 97.2
[2019-04-29] MEDS: traMADol HCl 50 MG TAB PO PRN (14:19)
--- NOTE | 2019-04-29 22:11 | DIS ---
DATE OF ADMISSION: 04/19/2019 DATE OF DISCHARGE: 04/29/2019 DISCHARGE DIAGNOSES: 1. Venous stasis ulceration of bilateral lower extremities. 2. Chronic venous insufficiency with ulceration. 3. Decubitus ulcerations of bilateral ischium and sacrum. 4. Chronic kidney disease stage 3. 5. Chronic combined systolic/diastolic congestive heart failure. 6. Nonambulatory status. CONSULTATIONS: Dr. Gomez with General Surgery Service. PERTINENT LABORATORY AND X-RAY FINDINGS: Sodium ranged between 132 to 137, creatinine ranged between 1.28 to 1.60. Estimated GFR ranged between 41 to 54. BNP 375. Albumin 3.4. CBC showed a white blood cell count ranged between 4.8 to 7.0, hemoglobin ranged between 8.4 to 9.7, platelet count ranged between 93 to 128. Blood cultures x2 dated 04/19/2019, showed no growth at 5 days. Urine culture dated 04/20/2019, showed less than 10,000 colonies of mixed skin and enteric jason. Lower extremity bacterial wound culture dated 04/20/2019, showed Proteus mirabilis and Pseudomonas species. C difficile antigen and toxin dated 04/27/2019, negative. CT of bilateral lower extremities showed no evidence for osseous erosions to suggest osteomyelitis. Severe left hip arthritis noted. CT of the pelvis dated 04/19/2019, showed severe destructive changes of the left hip. 2D transthoracic echocardiogram dated 04/20/2019, showed ejection fraction of 40% to 45%. Diastolic dysfunction noted. Moderate left atrial enlargement. HOSPITAL COURSE: The patient was initially admitted after presenting with increased drainage and malodorous discharge of bilateral lower extremity venous ulcerations concerning for infectious process. The patient was initially placed on IV vancomycin and meropenem and evaluated by the General Surgery Service. General Surgery did evaluate the lower extremity ulcers, however, no specific recommendation for surgical intervention was entertained. The patient received local wound care with the Wound Care Service with overall improvement in wound architecture. The patient received IV Lasix initially due to lower extremity edema, transitioning to oral Lasix. The patient also received local wound care to bilateral ischial ulcerations and small sacral decubitus ulceration. Due to the patient's nonambulatory status, the patient was instituted with turning protocol and received local wound care throughout the hospital course. Due to the patient's overall nonambulatory status and complex wound nature, the patient was deemed an appropriate candidate for ongoing detention care and medical supervision. I have examined the patient at the time of discharge and discussed followup instructions. The patient and verbalized understanding and in agreement and are amenable to transfer to [facility] on 04/29/2019. DISCHARGE MEDICATIONS: 1. Carvedilol 3.125 mg p.o. b.i.d. 2. Pepcid 20 mg p.o. at bedtime. 3. Ferrous sulfate 325 mg p.o. daily. 4. Lasix 20 mg p.o. daily. 5. Nystatin powder, applied to the affected area b.i.d. p.r.n. 6. Potassium citrate 10 mEq p.o. daily. 7. Tramadol 50 mg p.o. q.6 hours p.r.n. pain. FOLLOWUP: The patient will follow up with his primary care provider after discharge from [facility]. The patient is accepted for transfer to [facility] by Dr. Mosqueda. DIET: Regular. ACTIVITY: Ad-valentine. SPECIAL INSTRUCTIONS: Recommend wound care services in addition to physical and occupational therapy. CODE STATUS: Do not attempt resuscitation. DISPOSITION: Discharged to [facility] on 04/29/2019. TIME SPENT: Total time preparing and coordinating discharge, 35 minutes. Job ID: [id number]
== END 2019-04-29 15:07 | disposition swing bed (61) | DRG 592 ==
LOC: ERS 13:42 → T4-B 16:18
PROVIDERS: ADMIT Internal Medicine; ATTEND Internal Medicine
DX: L89.323 Pressure ulcer of left buttock, stage 3 (principal); I50.43 Acute on chronic combined systolic (congestive) and diastolic (congestive) heart failure; I13.0 Hypertensive heart and chronic kidney disease with heart failure and stage 1 through stage 4 chronic kidney disease, or unspecified chronic kidney disease; Z66 Do not resuscitate; L89.313 Pressure ulcer of right buttock, stage 3; N18.3 Chronic kidney disease, stage 3 (moderate); H91.90 Unspecified hearing loss, unspecified ear; F32.9 Major depressive disorder, single episode, unspecified; Z96.641 Presence of right artificial hip joint; M1A.9XX0 Chronic gout, unspecified, without tophus (tophi); I87.8 Other specified disorders of veins; Z88.8 Allergy status to other drugs, medicaments and biological substances; Z99.3 Dependence on wheelchair; Z87.891 Personal history of nicotine dependence; Z79.899 Other long term (current) drug therapy; Z88.1 Allergy status to other antibiotic agents; R19.7 Diarrhea, unspecified
CPT/HCPCS: 36415; 36416; 72192; 80048; 80053; 80069; 83605; 83880; 85025; 87040; 87070; 87077; 87086; 87186; 87205; 87324; 87449; 93306; 96361; 96365; 96366; 96367; 96368; J1650; J1940; J2185; J2543; J3370; J3490; J7050